=== PATIENT | male | born 1985 | race Caucasian/White ===

== ENCOUNTER → 2016-08-11 | Outpatient (CLI) | payer BC ==
[~2016-08-11] MED LIST: GADAVIST IV PRN
--- NOTE | 2016-08-11 20:29 | DIAGNOSTIC IMAGING REPORT ---
MRI brain. BRAIN COMBO FOR IAC CLINICAL HISTORY: R42 [id number] Vertigo be done at [facility] vertigo TECHNIQUE: Multiaxial MRI acquisition COMPARISON STUDY: None FINDINGS: Empty sella. Normal signal characteristics of the cerebellar as well as cerebral hemispheres. No abnormal postcontrast enhancement. Normal internal auditory canals. Diffusion-weighted images are negative for an acute ischemic insult. note is made of moderate mucosal thickening of the ethmoid sinuses. IMPRESSION: 1. Normal MRI of the brain and internal auditory canals. 2. Empty sella considered an incidental finding 3. Moderate mucosal thickening of the ethmoid sinuses Electronically signed by: Sukumar Laird M.D. 08/11/2016 8:28 PM Dictated Date/Time: 08/11/2016 8:25 PM
== END | disposition home or self-care (01) ==
LOC: C.MRI 18:38
PROVIDERS: ATTEND Physician Assistant
DX: R42 Dizziness and giddiness (principal)

== ENCOUNTER 2017-05-29 02:04 | Emergency (ER) | payer BC ==
[~2017-05-29] VITALS: Ht 193 cm; Wt 222.0 kg
[2017-05-29 02:13] VITALS: Ht 193 cm; Wt 222.0 kg
[2017-05-29] MEDS ORDERED: OXYCODONE IR HOME PACK PO ONE (02:45)
[2017-05-29] MEDS ORDERED: CLINDAMYCIN 150MG HOME PACK PO ONE (02:45)
[2017-05-29] MEDS ORDERED: CLIN150C PO (02:49)
[2017-05-29] MEDS ORDERED: OXYC1TAB3 PO (02:49)
[2017-05-29 03:01] VITALS: BP 149/91; PULSE 76; O2SAT 96
[2017-05-29] MEDS ORDERED: ACET-1325 PO (03:06)
[2017-05-29] MEDS ORDERED: ESCI10TA17 PO (03:07)
[2017-05-29] MEDS ORDERED: BUPR-79 PO (03:07)
[2017-05-29] MEDS ORDERED: MECL1TAB42 PO (03:08)
[2017-05-29] MEDS ORDERED: HYZ/50125 PO (03:09)
--- NOTE | 2017-05-29 07:00 | EMERGENCY ROOM VISIT NOTE ---
History First contact with patient: :24 Chief Complaint: DENTAL PAIN Stated Complaint: SEVERE PAIN IN JAW/MOUTH Nursing Triage Summary: "Wednesday night, I had an abcessed wisdom tooth. I can't get into the dentist until Wednesday. I am at my whits end with the pain." History of Present Illness The patient is a 31 year old male who presents to the Emergency Room with complaints of dental pain for the past few days steadily getting worse described as aching, ranging in severity 7 out of 10. Nothing makes it better or worse. He has appointment on Wednesday with a dentist. He has not seen him in a while. Patient denies chest pain, dyspnea, fevers, facial swelling, sore throat, cold symptoms. Review of Systems See HPI for pertinent positives & negatives. A total of 10 systems reviewed and were otherwise negative. Past Medical/Surgical History Hypertension Social History Smoking Status: Current Every Day Smoker Drug Use: none Marital Status: Housing Status: lives with family Occupation Status: employed Current/Historical Medications Scheduled Acetazolamide (Acetazolamide), 500 MG PO BID Bupropion (Wellbutrin Sr), 150 MG PO DAILY Clindamycin Hcl (Cleocin), 150 MG PO QID Escitalopram (Lexapro), 20 MG PO DAILY Hctz/Losartan (Hyzaar 12.5MG/50MG), 1 TAB PO DAILY Meclizine Hcl (Meclizine Hcl), 25 MG PO DIRECTED Scheduled PRN Oxycodone Immediate Rel Tab (Roxicodone Ir), 1-2 TAB PO Q4H PRN for Severe Pain Physical Exam Vital Signs Date Time Temp Pulse Resp B/P (MAP) Pulse Ox O2 Delivery O2 Flow Rate FiO2 05/29/17 03:01 76 20 149/91 96 Room Air 05/29/17 02:13 73 20 183/133 99 Room Air Physical Exam VITALS: Vitals are noted on the nurse's note and reviewed by myself. Vital signs hypertensive. GENERAL:pleasant male, in no acute distress, nondiaphoretic, well-developed well -nourished. SKIN: The skin was without rashes, erythema, edema, or bruising. There is no tenting of the skin. Capillary reflex less than 2 seconds. HEAD: Normocephalic atraumatic. EARS: External auditory canals clear, tympanic membranes pearly davalos without erythema or effusion bilaterally. EYES: Pupils equal round and reactive to light and accommodation. Conjunctivae without injection, sclerae without icterus. Extraocular movements intact. NOSE: Patent, turbinates without inflammation or discharge. No sinus tenderness. MOUTH: Mucous membranes moist. Pharynx without erythema or exudate. Uvula midline. Airway patent. Tongue does not deviate. Dental exam: Extensive plaque buildup, left lower molar with dental decay and gum line is erythematous without palpable abscess. No signs of Rey angina. NECK: Supple without nuchal rigidity. No lymphadenopathy. No thyromegaly. Cervical spine is nontender. No JVD. HEART: Regular rate and rhythm without murmurs gallops or rubs. LUNGS: Clear to auscultation bilaterally without wheezes, rales or rhonchi. No dullness to percussion. No retractions or accessory muscle use. MUSCULOSKELETAL: No muscle atrophy, erythema, noted. NEURO: Patient was alert and oriented to person place and time. Normal sensation to light and sharp touch. No focal neurological deficits. Medical Decision & Procedures Medications Administered Medications (Trade) Dose Ordered Sig/Oleksandr Route Start Time Stop Time Status Last Admin Dose Admin Clindamycin HCl (Cleocin 150MG Home Pack) 1 homepack UD ONCE PO 05/29/17 02:45 05/29/17 02:46 DC 05/29/17 02:56 1 HOMEPACK Oxycodone HCl (Roxicodone Immediate Rel 5MG Home Pack) 1 homepack UD ONCE PO 05/29/17 02:45 05/29/17 02:46 DC 05/29/17 02:56 1 HOMEPACK ED Course Prior records reviewed and summarized as above. Triage Nursing notes reviewed. The patient's history was concerning for dental pain. Differential diagnosis: Etiologies such as cellulitis, abscess, Rey angina, gingivitis, cavity, as well as others were entertained.. Physical examination: The physical examination was consistent with dental pain from dental cavity ER treatment provided: Clindamycin, OxyIR On reassessment the patient felt better. Diagnostics interpreted by me: Deferred This appears to be dental pain from dental cavity. Patient had no signs of airway compromise. No abscess. No Rey's angina. He was counseled on proper dental hygiene and advised to follow-up with his dentist as scheduled on Wednesday or here in the ER sooner for high fevers, facial swelling, worsening signs or symptoms or as needed. By the evaluation outlined above emergent etiologies such as abscess, Rey angina, as well as others were deemed relatively unlikely. The pt informed about the findings as listed above. All questions were answered and pleased with the treatment. Return instructions were outlined and the patient was discharged in stable condition. Outpatient prescription management: Cleocin, OxyIR Referral: The patient was referred back to dentistry and primary care physician for follow -up in 2 to 3 days for a recheck of the current condition. Medical Decision As above [place] Drug Monitoring Program Search Results: patient reviewed within database, no issues identified Medication Reconcilliation Current Medication List: was personally reviewed by me Blood Pressure Screening Patient's blood pressure: Elevated blood pressure Blood pressure disposition: Elevated BP felt to be situational Impression Primary Impression: Dental caries Additional Impression: Tooth pain with chewing Departure Information Dispostion Home / Self-Care Condition GOOD Prescriptions Oxycodone Immediate Rel Tab (ROXICODONE IR) 5 Mg Tab 1-2 TAB PO Q4H Y for Severe Pain, #15 TAB Prov: Diamond Garcia PA-C 05/29/17 Clindamycin Hcl (CLEOCIN) 150 Mg Cap 150 MG PO QID for 9 Days, #36 CAP Prov: Diamond Garcia PA-C 05/29/17 Referrals Davie Hadley D.OSharon (PCP) Forms HOME CARE DOCUMENTATION FORM, IMPORTANT VISIT INFORMATION Patient Instructions [facility], ED Tooth Pain, ED Cavity Dental Additional Instructions Monitor your blood pressure. It was high. Clindamycin 150mg: Take one pill 4 times daily for 10 days for your infection. Take with food, but avoid dairy. Avoid prolonged sun exposure since this medication makes you temporarily more susceptible to sunburns. All antibiotics can cause diarrhea. If this occurs and you feel worse or it does not resolve in 1-2 days follow up with your doctor or return to the Emergency Department as this could be signs of serious underlying problems. Any medication can cause an allergic reaction, stop the pills immediately and return to the ER for rash, hives, breathing difficulties, or swelling. Oxycodone (OxyIR) 5mg: Take 1-2 pills every four hours for breakthrough pain. Avoid alcohol, operating machinery or dangerous equipment, working on ladders or roofs, DRIVING, or situations where being under the influence may be dangerous. It is recommended to use an rgue-fob-rdmbcie stool softener such as Colace, 100mg twice daily while taking this medication to avoid constipation. Ibuprofen(Motrin, Advil) may be used for fever or pain. Use 600mg every six hours as needed. Take with food. Avoid using more than 2400mg in a 24 hour period. Do not use 2400mg per day for more than three consecutive days without physician direction. Prolonged inappropriate use can lead to stomach upset or ulcers. This medication can be taken if you need to drive, work, or perform activities which may be dangerous when taking narcotic pain medication. (AND/OR) Acetaminophen(Tylenol) may be used for fever or pain. Use 1000mg every six hours as needed. Avoid using more than 3000mg in a 24 hour period. This medication can be taken if you need to drive, work, or perform activities which may be dangerous when taking narcotic pain medication. Yale teeth twice a day, floss daily and do warm saltwater gargles 3 times a day. See a dentist as soon as possible for definitive care for your dental problem. Return to ER sooner for facial swelling, fever, redness, worsening signs or symptoms or as needed. Problem Qualifiers
== END 2017-05-29 03:04 | disposition home or self-care (01) ==
LOC: C.EDB 02:05 → C.EDC 03:04
DX: K02.9 Dental caries, unspecified (principal); K08.89 Other specified disorders of teeth and supporting structures; I10 Essential (primary) hypertension; F17.200 Nicotine dependence, unspecified, uncomplicated